=== PATIENT | female | born 1985 | race African-American/Black ===

== ENCOUNTER 2025-03-07 15:58 | Emergency (ER) | payer MEDICAID ==
[~2025-03-07] VITALS: Ht 170.2 cm; Wt 78.0 kg
[2025-03-07 16:29] VITALS: O2SAT 100
[2025-03-07] MEDS ORDERED: TRAZ-251 MT (17:41)
[2025-03-07 18:03] VITALS: BP 147/91; PULSE 99; RESP 18; TEMP 37.2; O2SAT 100
[2025-03-07] MEDS: DIPHENHYDRAMINE 25MG CAPSULE PO ONE (18:05)
[2025-03-07] MEDS: TRAZODONE HCL 50MG TABLET PO SCH (18:05)
== END 2025-03-07 18:04 | disposition home or self-care (01) ==
LOC: ER 15:58
DX: G47.00 Insomnia, unspecified (principal); F31.9 Bipolar disorder, unspecified; Z79.899 Other long term (current) drug therapy
CPT/HCPCS: 99283; 81025; Q0163